=== PATIENT | male | born 1975 | race Caucasian/White ===

== ENCOUNTER 2025-02-20 12:12 | Emergency (ER) | payer OTHER ==
[~2025-02-20] VITALS: Ht 177.8 cm; Wt 71.7 kg
[2025-02-20 12:29] LABS: BASOPHILS 0.5 % (0.2-1.2); EOSINOPHILS 4.4 % (0.8-7.0); LYMPHOCYTES 15.6 % (21.8-53.1); MCH 30.0 PG (25.7-32.2); MCHC 33.9 g/dL (32.3-36.5); MCV 88.4 fL (79.0-92.2); MONOCYTES 6.8 % (5.3-12.2); NEUTROPHILS 72.5 % (34.0-67.9); RBC 5.27 M/uL (4.63-6.08)
[2025-02-20] MEDS ORDERED: ASPIRIN 81 MG CHEW PO ONE (12:30)
[2025-02-20] MEDS ORDERED: LIDOCAINE & ANTACID 35 ML BTL PO ONE (12:45)
[2025-02-20 12:51] LABS: ALT (SGPT) 18.0 U/L (14-59); AST (SGOT) 12.0 U/L (15-37); GLOMERULAR FILTRATION RATE,EST 106.0 mL/min (>60); PROTEIN, TOTAL 7.4 g/dL (6.4-8.2); UREA NITROGEN 13.0 mg/dL (7-18)
[2025-02-20 13:46] VITALS: BP 136/80
--- NOTE | 2025-02-22 07:38 | EKG ---
[facility] [address] [place] [address] Signed Normal sinus rhythm with sinus arrhythmia Moderate voltage criteria for LVH, may be normal variant ( Sokolow-Tate , [place] product ) Borderline ECG No previous ECGs available Confirmed by Paola Hanley DO ([id number]) on 02/22/2025 7:38:35 AM Electronically Signed By: PAOLA HANLEY DO 02/22/25 0738 PATIENT NAME: HALEY BAEZ Electrocardiogram DATE OF : 77 PHYSICIAN: PAOLA HANLEY DO REPORT #: [id number] REPORT IS CONFIDENTIAL AND NOT TO BE RELEASED WITHOUT AUTHORIZATION
== END 2025-02-20 13:46 | disposition home or self-care (01) ==
LOC: ED 12:12
PROVIDERS: Emergency Medicine
DX: R07.9 Chest pain, unspecified (principal); Z88.0 Allergy status to penicillin
CPT/HCPCS: 36415; 71045; 80053; 83735; 84484; 85025; 93005; 93010; 99285-25